=== PATIENT | male | born 1945 | race Caucasian/White ===

== ENCOUNTER 2016-02-26 05:35 | Emergency (ER) | payer OTHER, MEDICARE ==
[~2016-02-26] VITALS: Ht 182.9 cm; Wt 111.1 kg
[~2016-02-26 05:35] MED LIST: ASPIR 8181 MG PO; ATORVASTATIN CA40 MG PO; CENTRUM SILVER1 TA1 PO; LOPRESSOR 25MG25 MG PO; NITROSTAT0.4 MG SL; NORVASC 5MG TAB5 MG PO; PREDNISONE 10MG10 M1 PO
[2016-02-26 05:40] VITALS: BP 138/88
--- NOTE | 2016-02-26 05:50 | ED SKIN/ALLERGY COMPLAINT ---
History of Present Illness General Chief Complaint: Allergy Symptoms Stated Complaint: ALLERGIC REACTION Source: patient Exam Limitations: no limitations Vital Signs & Intake/Output Vital Signs & Intake/Output Vital Signs Date Time Temp Pulse Resp B/P Pulse O2 O2 Flow FiO2 Ox Delivery Rate 02/25 0549 Room Air 02/25 0540 97.2 63 18 138/88 97 Room Air Allergies Coded Allergies: lisinopril (Severe, ANAPHYLAXIS 02/26/16) Reconcile Medications Amlodipine (Norvasc 5MG Tab) 5 MG TABLET 1 TAB PO QAM BP/HEART (Reported) Aspirin (Ecotrin) 81 MG TABLET.DR 1 TAB PO QAM HEART HEALTH (Reported) Atorvastatin Calcium (Lipitor) 40 MG TABLET 1 TAB PO EOD CHOLESTEROL ( Reported) Metoprolol Tartrate (Lopressor) 25 MG TABLET 1 TAB PO BID HEART/BP (Reported) Multivitamin, Minerals, and (Centrum Silver) 1 TAB TAB 1 TAB PO QAM MULTIVITAMIN (Reported) Nitroglycerin (Nitrostat) 0.4 MG TAB.SUBL 1 TAB SL AD PRN ANGINA (Reported) Prednisone 50 MG TABLET 1 TAB PO DAILY allergic reaction Triage Note: TRIAGE: PATIENT TO ER FROM HOME REPORTING ATE DINNER LAST NIGHT W/ SHRIMP (HAS HAD SHRIMP IN PAST W/O DIFFICULTY) AND WOKE THIS AM X 2 HOURS W/ L FACE SWELLING. DENIES SOB, AIRWAY PATENT, SPEECH CLEAR. NO ACUTE RESP DISTRESS NOTED. DENIES RASH/ ITCHINESS. PATIENT REPORTS HX UNKNOWN ALLERGY, HAS SEEN [employer] IN PAST. Triage Nurses Notes Reviewed? yes Onset: Gradual Duration: hour(s): Timing: single episode today Severity: mild Location: left cheek Possible Factors: foods No Modifying Factors: none Associated Symptoms: left cheek swelling HPI: 70 yo gentleman h/o htn, increased lipids, presents with left cheeck swelling and itchiness upon awakening this morning after eating shrimp last night. He notes a prior allergic reaction, but without etiology. He notes no tongue swelling, wheezing, dyspnea, chest pain, dizziness, shortness of breath. Past History Travel History Traveled to [place] past 21 day No Medical History Any Pertinent Medical History? 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 No Review of Systems Review of Systems Constitutional: Reports: no symptoms. EENTM: Reports: no symptoms. Respiratory: Reports: no symptoms. Cardiovascular: Reports: no symptoms. GI: Reports: no symptoms. Genitourinary: Reports: no symptoms. Musculoskeletal: Reports: no symptoms. Skin: Reports: no symptoms. Neurological/Psychological: Reports: no symptoms. Hematologic/Endocrine: Reports: no symptoms. Immunologic/Allergic: Reports: no symptoms. All Other Systems: Reviewed and Negative Physical Exam Physical Exam General Appearance: well developed/nourished, mild distress Head: atraumatic Eyes: Bilateral: normal appearance. Ears, Nose, Throat: normal pharynx, normal ENT inspection, hearing grossly normal, left cheek with mild urticaria 4x4cm. no dental tenderness, gum swelling /abscess. Neck: normal inspection, supple Respiratory: normal breath sounds Cardiovascular: regular rate/rhythm Gastrointestinal: soft, non-tender Back: normal inspection Extremities: normal inspection, normal range of motion, no edema Neurologic/Psych: awake, alert, oriented x 3, normal mood/affect Lymphatic: no anterior cervical erin Progress Differential Diagnosis: allergic reaction, angioedema, urticaria Plan of Care: gave prednisone and benadryl... advised close follow up. Departure Departure Disposition: HOME OR SELF CARE Condition: Stable Clinical Impression Primary Impression: Urticaria Referrals: PATIENT HAS NO PRIMARY CARE DR (PCP/Family) Departure Forms: Customer Survey General Discharge Information Prescriptions: Current Visit Scripts Prednisone 1 TAB PO DAILY #4 TAB
[2016-02-26] MEDS ORDERED: PREDNISONE50 M1 PO (05:56)
== END 2016-02-26 06:23 ==
LOC: ERH 05:35
DX: L50.9 Urticaria, unspecified (principal)

== ENCOUNTER 2017-06-02 20:59 | Inpatient (IN) | payer OTHER, MEDICARE ==
[~2017-06-02] VITALS: Ht 182.9 cm; Wt 102.1 kg
[~2017-06-02 20:59] MED LIST changes: -ATORVASTATIN CA40 MG PO; +LIPITOR40 M1 PO; -NORVASC 5MG TAB5 MG PO; +NORVASC2.5 M1 PO; +PREDNISONE50 M1 PO
--- NOTE | 2017-06-02 21:08 | ED SYNCOPE COMPLAINT ---
History of Present Illness General Chief Complaint: Syncope and Near-Syncope Stated Complaint: BIBA DIZZY, SYNCOPE Source: patient Exam Limitations: no limitations Vital Signs & Intake/Output Vital Signs & Intake/Output Vital Signs Date Time Temp Pulse Resp B/P B/P Pulse O2 O2 Flow FiO2 Mean Ox Delivery Rate 06/02 2146 94 06/02 2114 93 Nasal 2.0L Cannula 06/02 2102 98.4 70 18 136/75 93 Nasal 2.0L Cannula Allergies Coded Allergies: lisinopril (Severe, ANAPHYLAXIS 02/26/16) Reconcile Medications Amlodipine (Norvasc 5MG Tab) 5 MG TABLET 1 TAB PO QAM BP/HEART (Reported) Aspirin (Ecotrin) 81 MG TABLET.DR 1 TAB PO QAM HEART HEALTH (Reported) Atorvastatin Calcium (Lipitor) 40 MG TABLET 1 TAB PO EOD CHOLESTEROL ( Reported) Metoprolol Tartrate (Lopressor) 25 MG TABLET 1 TAB PO BID HEART/BP (Reported) Multivitamin, Minerals, and (Centrum Silver) 1 TAB TAB 1 TAB PO QAM MULTIVITAMIN (Reported) Nitroglycerin (Nitrostat) 0.4 MG TAB.SUBL 1 TAB SL AD PRN ANGINA (Reported) Prednisone 50 MG TABLET 1 TAB PO DAILY allergic reaction Triage Nurses Notes Reviewed? yes Timing: recent history Precipitating Factors: none Context: walking Episode Description: see below Loss of Consciousness: near loss of consciousness Associated Symptoms: dizzines,shortness of breath. HPI: 71 YO gentleman h/o diabetes, cad, peripheral neuropathy presents with near syncopal event, fall, dizziness, shortness of breath and wheezing. "I was walking and was really short of breath... I got really dizzy and almost passed out.... I was so tired walking, like I couldn't even move." No fever, chills, palpitations, chest pain, headache. He is otherwise well. Past History Travel History Traveled to [place] past 21 day No Medical History Any Pertinent Medical History? 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 No Review of Systems Review of Systems Constitutional: Reports: no symptoms. EENTM: Reports: no symptoms. Respiratory: Reports: no symptoms. Cardiovascular: Reports: no symptoms. GI: Reports: no symptoms. Genitourinary: Reports: no symptoms. Musculoskeletal: Reports: no symptoms. Skin: Reports: no symptoms. Neurological/Psychological: Reports: no symptoms. All Other Systems: Reviewed and Negative Physical Exam Physical Exam General Appearance: well developed/nourished, mild distress Head: atraumatic, normal appearance Eyes: Bilateral: normal appearance, PERRL, EOMI. Ears, Nose, Throat: normal pharynx, normal ENT inspection Neck: normal inspection, supple, full range of motion Respiratory: wheezing, prolonged expiratory phase Cardiovascular: regular rate/rhythm Gastrointestinal: normal bowel sounds, soft, non-tender, no organomegaly Back: normal inspection, normal range of motion Extremities: normal inspection, normal capillary refill, normal range of motion, no edema Psychiatric: awake, alert, oriented x 3 Cranial Nerves: normal hearing, normal speech Skin: right knee with abrasion on patella Core Measures ACS in differential dx? No CVA/TIA Diagnosis: No Sepsis Present: No Sepsis Focused Exam Completed? No Progress Differential Diagnosis: copd exacerbation vs acs vs dysrhythmia vs other. Plan of Care: Orders Procedure Date/time Status Nothing by Mouth 06/03 B Active Saline Lock 06/03 2251 Active Misc Message 06/03 2251 Active ED Holding Orders 06/03 2251 Active Admit to inpatient 06/03 2251 Active Vital Signs 06/03 2251 Active Code Status 06/03 2251 Active BLOOD CULTURE 06/03 2119 Active BLOOD CULTURE 06/02 2116 Active TROPONIN LEVEL 06/03 2107 Complete LIPASE 06/03 2107 Complete HEPATIC FUNCTION PANEL 06/03 2107 Complete D-DIMER 06/03 2107 Complete CBC WITHOUT DIFFERENTIAL 06/03 2107 Complete BASIC METABOLIC PANEL 06/03 2107 Complete AMYLASE 06/03 2107 Complete EKG 06/03 2107 Active Laboratory Tests 06/02/172138: Anion Gap 11, Estimated GFR > 60, BUN/Creatinine Ratio 17.1, Glucose 126 H, Calcium 9.2, Total Bilirubin 1.0, Direct Bilirubin 0.2, AST 38, ALT 46, Alkaline Phosphatase 82, Troponin I < 0.01, Total Protein 6.8, Albumin 4.2, Amylase 62, Lipase 137, D-Dimer High Sensitivty 233, CBC w Diff NO MAN DIFF REQ, RBC 5.02, MCV 88.1, MCH 29.8, MCHC 33.8, RDW 13.4, MPV 7.9, Gran % 61.8, Lymphocytes % 25.2, Monocytes % 12.2 H, Eosinophils % 0.4, Basophils % 0.4, Absolute Granulocytes 2.3, Absolute Lymphocytes 0.9 L, Absolute Monocytes 0.5, Absolute Eosinophils 0, Absolute Basophils 0 Microbiology 06/02 2138 BLOOD: Blood Culture - RECD 06/02 2129 BLOOD: Blood Culture - RECD Diagnostic Imaging: Viewed by Me: Radiology Read, CT Scan. Discussed w/RAD: Radiology Read, CT Scan. Radiology Impression: PATIENT: ARAMIS MUNROE PRESENT AGE: 71 PATIENT ACCOUNT NO: [id number] : 45 LOCATION: [facility] ORDERING PHYSICIAN: Gabino Mccormack MD SERVICE DATE: 06/02/17 EXAM TYPE: RAD - XRY-SHOULDER COMPLETE-RIGHT EXAMINATION: SHOULDER 3 VIEWS, RIGHT CLINICAL INFORMATION: Right shoulder pain after fall. COMPARISON: None. TECHNIQUE: AP views of the right shoulder were obtained in internal and external rotation. In addition, a Y view was obtained. FINDINGS: There are no fractures or dislocations. The humeral head is seated within a well-formed glenoid. The AC joint is intact. There is age-appropriate mild degenerative change to the right AC joint. IMPRESSION: No evidence for acute injury to the right shoulder. DICTATED BY: Gunanr Abdalla MD DATE/TIME DICTATED:06/02/172207 WOOLEN TESTER:JAMEY DATE/TIME TRANSCRIBED:06/02/172207 CONFIDENTIAL, DO NOT COPY WITHOUT APPROPRIATE AUTHORIZATION. <Electronically signed in Other Vendor System> SIGNED BY: Gunnar Abdalla MD 06/02/172211, PATIENT: ARAMIS MUNROE PRESENT AGE: 71 PATIENT ACCOUNT NO: [id number] : 45 LOCATION: [facility] ORDERING PHYSICIAN: Gabino Mccormack MD SERVICE DATE: 06/02/17 EXAM TYPE: RAD - XRY-KNEE COMPLETE RIGHT EXAMINATION: XR KNEE, RIGHT CLINICAL INFORMATION: Fall. Abrasions. COMPARISON: None TECHNIQUE: Four views of the right knee. FINDINGS: There is no fracture. No dislocation. No joint effusion. There is no radiopaque foreign body. No air in the soft tissue. There are varices in the soft tissues of the upper calf. There are vascular calcification of femoral artery and the arteries of the upper calf. IMPRESSION: No acute abnormality. DICTATED BY: Stas Crespo MD DATE/TIME DICTATED:06/02/172208 WOOLEN TESTER:JAMEY DATE/TIME TRANSCRIBED:06/02/172208 CONFIDENTIAL, DO NOT COPY WITHOUT APPROPRIATE AUTHORIZATION. <Electronically signed in Other Vendor System> SIGNED BY: Stas Crespo MD 06/02/172213, PATIENT: ARAMIS MUNROE PRESENT AGE: 71 PATIENT ACCOUNT NO: [id number] : 45 LOCATION: [facility] ORDERING PHYSICIAN: Gabino Mccormack MD SERVICE DATE: 06/02/17 EXAM TYPE: CAT - CT CERV SPINE WO IV CONTRAST; CT HEAD WO IV CONTRAST EXAMINATION: CT HEAD WITHOUT CONTRAST CT CERVICAL SPINE WITHOUT CONTRAST CLINICAL INFORMATION: 71-year-old man with syncope, fall, and injury. COMPARISON : None. TECHNIQUE: Imaging was performed from the skull base to vertex without intravenous administration of contrast. In addition, helical noncontrast CT imaging was acquired through the cervical spine and source images were reviewed along with axial reconstructions and sagittal and coronal MPRs. DLP: 964 mGy-cm FINDINGS: HEAD: No intracranial mass, hemorrhage, or midline shift is visualized. The ventricles and sulci are age-appropriate. No extra-axial collections are identified. Moderate mucosal thickening is noted in the ethmoid air cells and a mucus retention cyst is is abnormal in the sphenoid sinus. CERVICAL SPINE: There is no evidence of acute cervical spine fracture. Vertebral bodies remain normal in height. There is reversal of the normal cervical lordosis. Degenerative endplate remodeling with marginal osteophyte formation and moderate loss of normal disc space is noted at C4-C5, C5-C6, and C6-C7. No pre- or paravertebral soft tissue abnormality is identified. Limited assessment of the lung apices is notable for moderate paraseptal emphysema. IMPRESSION: 1. No acute intracranial pathology. 2. No CT evidence of acute cervical spine fracture or traumatic subluxation. DICTATED BY: Carin Marinelli MD DATE/TIME DICTATED:06/02/172153 WOOLEN TESTER:JAMEY DATE/TIME TRANSCRIBED:2153 CONFIDENTIAL, DO NOT COPY WITHOUT APPROPRIATE AUTHORIZATION. < Electronically signed in Other Vendor System> SIGNED BY: Carin Marinelli MD 2200, PATIENT: ARAMIS MUNROE PRESENT AGE : 71 PATIENT ACCOUNT NO: [id number] : 45 LOCATION: [facility] ORDERING PHYSICIAN: Gabino Mccormack MD SERVICE DATE: 06/02/17 EXAM TYPE: RAD - XRY-PORTABLE CHEST XRAY EXAMINATION: CHEST 1 VIEW CLINICAL INFORMATION: Chest pain. COMPARISON: None. TECHNIQUE: An AP view of the chest is provided. FINDINGS: The cardiac silhouette is not enlarged. The mediastinal and hilar contours are unremarkable. There are neither pleural effusions nor pneumothoraces. There are no consolidations. The osseous structures are unremarkable. IMPRESSION: No evidence for acute disease. DICTATED BY: Gunnar Abdalla MD DATE/TIME DICTATED:06/02/172207 WOOLEN TESTER:JAMEY DATE/TIME TRANSCRIBED:06/02/172207 CONFIDENTIAL, DO NOT COPY WITHOUT APPROPRIATE AUTHORIZATION. <Electronically signed in Other Vendor System> SIGNED BY: Gunnar Abdalla MD 06/02/172211 CXR Impression: no acute abnormality, no infiltrates, normal size heart, normal mediastinum Initial ED EKG: borderline left axis, no acute changes Departure Departure Disposition: STILL A PATIENT Condition: Stable Clinical Impression Primary Impression: COPD exacerbation Secondary Impressions: Dizziness, Near syncope Referrals: Bartolo ACE,Walker Weber (PCP/Family) Departure Forms: Customer Survey General Discharge Information Admission Note Spoke With: Bobbi Rojas MD Documentation of Exam: Documentation of any treatments & extenuating circumstances including Concerns Regarding Discharge (functional status, medication knowledge or non-compliance, living conditions, etc.) that warrant an admission rather than observation: pt hypoxic to 88% on room air, with wheezing on exam, feels better after neb. pt also with near syncopal event in context of CAD, c/w copd exacerbation w/ syncope merits serial trops/monitoring/ekg, cards eval in am, iv steroids/abx, 02 support, nebs. Critical Care Note Critical Care Note Critical Care Time: 30-74 min
[2017-06-02 21:48] LABS: ABSOLUTE BASOPHIL COUNT 0 /CUMM (0.0-0.2); ABSOLUTE EOSINOPHIL COUNT 0 /CUMM (0.0-0.7); ABSOLUTE GRANULOCYTE CT 2.3 /CUMM (1.4-6.5); ABSOLUTE LYMPH COUNT 0.9 /CUMM (1.2-3.4); ABSOLUTE MONOCYTE COUNT 0.5 /CUMM (0.10-0.60); BASOPHIL % 0.4 % (0.0-2.0); EOSINOPHIL % 0.4 % (0-5); GRANULOCYTE % 61.8 % (42.2-75.2); HEMATOCRIT 44.2 % (42-52); MEAN CORPUSCULAR HGB 29.8 PG (27.0-31.0); MEAN CORPUSCULAR HGB CONC 33.8 G/DL (33.0-37.0); MEAN CORPUSCULAR VOLUME 88.1 FL (80.0-94.0); MEAN PLATELET VOLUME 7.9 FL (7.4-10.4); PLATELET COUNT 178 /CUMM (130-400); RBC DISTRIBUTION WIDTH 13.4 % (11.5-14.5); RED BLOOD CELL CT 5.02 /CUMM (4.70-6.10); WHITE BLOOD CELL COUNT 3.7 /CUMM (4.8-10.8)
--- NOTE | 2017-06-02 22:01 | CT SCAN REPORT ---
EXAMINATION: CT HEAD WITHOUT CONTRAST CT CERVICAL SPINE WITHOUT CONTRAST CLINICAL INFORMATION: 71-year-old man with syncope, fall, and injury. COMPARISON: None. TECHNIQUE: Imaging was performed from the skull base to vertex without intravenous administration of contrast. In addition, helical noncontrast CT imaging was acquired through the cervical spine and source images were reviewed along with axial reconstructions and sagittal and coronal MPRs. DLP: 964 mGy-cm FINDINGS: HEAD: No intracranial mass, hemorrhage, or midline shift is visualized. The ventricles and sulci are age-appropriate. No extra-axial collections are identified. Moderate mucosal thickening is noted in the ethmoid air cells and a mucus retention cyst is is abnormal in the sphenoid sinus. CERVICAL SPINE: There is no evidence of acute cervical spine fracture. Vertebral bodies remain normal in height. There is reversal of the normal cervical lordosis. Degenerative endplate remodeling with marginal osteophyte formation and moderate loss of normal disc space is noted at C4-C5, C5-C6, and C6-C7. No pre- or paravertebral soft tissue abnormality is identified. Limited assessment of the lung apices is notable for moderate paraseptal emphysema. IMPRESSION: 1. No acute intracranial pathology. 2. No CT evidence of acute cervical spine fracture or traumatic subluxation.
--- NOTE | 2017-06-02 22:12 | RADIOLOGY REPORT ---
EXAMINATION: SHOULDER 3 VIEWS, RIGHT CLINICAL INFORMATION: Right shoulder pain after fall. COMPARISON: None. TECHNIQUE: AP views of the right shoulder were obtained in internal and external rotation. In addition, a Y view was obtained. FINDINGS: There are no fractures or dislocations. The humeral head is seated within a well-formed glenoid. The AC joint is intact. There is age-appropriate mild degenerative change to the right AC joint. IMPRESSION: No evidence for acute injury to the right shoulder.
--- NOTE | 2017-06-02 22:12 | RADIOLOGY REPORT ---
EXAMINATION: CHEST 1 VIEW CLINICAL INFORMATION: Chest pain. COMPARISON: None. TECHNIQUE: An AP view of the chest is provided. FINDINGS: The cardiac silhouette is not enlarged. The mediastinal and hilar contours are unremarkable. There are neither pleural effusions nor pneumothoraces. There are no consolidations. The osseous structures are unremarkable. IMPRESSION: No evidence for acute disease.
--- NOTE | 2017-06-02 22:14 | RADIOLOGY REPORT ---
EXAMINATION: XR KNEE, RIGHT CLINICAL INFORMATION: Fall. Abrasions. COMPARISON: None TECHNIQUE: Four views of the right knee. FINDINGS: There is no fracture. No dislocation. No joint effusion. There is no radiopaque foreign body. No air in the soft tissue. There are varices in the soft tissues of the upper calf. There are vascular calcification of femoral artery and the arteries of the upper calf. IMPRESSION: No acute abnormality.
--- NOTE | 2017-06-02 23:39 | History & Physical ---
Arnel ACE,[facility] 06/02/17 3338: General Information and HPI MD Statement: I have seen and personally examined ARAMIS MUNROE and documented this H& P. The patient is a 71 year old M who presented with a patient stated chief complaint of [dizziness and near syncope]. Source of Information: patient Exam Limitations: no limitations History of Present Illness: 71 yo M with PMH of hypertension, diabetes presented to the ED after a near syncopal episode earlier today. 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 Earlier today he was at work and felt fatigued so decided to go home. He was walking to his car when he starting feeling dizzy and lightheaded and fell on his right side. He did not lose consciousness or hit his head. Denies any chest pain or palpitations preceeding the fall. The patient states that he has been feeling off balance and wobbly at his feet for the past 4 weeks . He had a fall previously at his sister's place around 4 weeks ago. No LOC or head trauma at that time either. His other complain is that he feels that he is having bronchitis; sore throat, cough with sputum production since the weekend. He took some OTC medication which made him feel better. Did not receive the flu vaccination this year. Smokes 2 PPD for past 50 years but quit yesterday. Follows Dr Benjamin Valle in [place]. Last saw him 5-6 weeks ago and was told everything is normal. Allergies/Medications Allergies: Coded Allergies: lisinopril (Severe, ANAPHYLAXIS 02/26/16) Home Med list Amlodipine (Norvasc) 2.5 MG TABLET 1 TAB PO DAILY HTN (Reported) Aspirin (Ecotrin) 81 MG TABLET.DR 1 TAB PO QAM HEART HEALTH (Reported) Atorvastatin Calcium (Lipitor) 40 MG TABLET 1 TAB PO DAILY HLD (Reported) Metoprolol Tartrate (Lopressor) 25 MG TABLET 1 TAB PO BID HEART/BP (Reported) Multivitamin, Minerals, and (Centrum Silver) 1 TAB TAB 1 TAB PO QAM MULTIVITAMIN (Reported) Nitroglycerin (Nitrostat) 0.4 MG TAB.SUBL 1 TAB SL AD PRN ANGINA (Reported) Prednisone 50 MG TABLET 1 TAB PO DAILY allergic reaction Past History Travel History Traveled to [place] past 21 day No Medical History Neurological: NONE EENT: NONE Cardiovascular: hypertension, ND'S X2 Respiratory: NONE Gastrointestinal: NONE Hepatic: NONE Renal: NONE Musculoskeletal: NONE Psychiatric: NONE Endocrine: NONE Blood Disorders: NONE Cancer(s): NONE COSTUME TECHNICIAN/Reproductive: NONE Surgical History Surgical History: non-contributory Past Family/Social History Psychosocial History ETOH Use: occasional use Illicit Drug Use: denies illicit drug use Review of Systems Review of Systems Constitutional: Reports: weakness. Denies: chills, fever. EENTM: Reports: no symptoms. Cardiovascular: Denies: chest pain, palpitations. Respiratory: Reports: cough, short of breath, sputum production. Denies: wheezing. GI: Reports: no symptoms. Genitourinary: Reports: no symptoms. Musculoskeletal: Denies: joint pain, muscle pain. Skin: Reports: no symptoms. Neurological/Psychological: Reports: no symptoms. Hematologic/Endocrine: Reports: no symptoms. Exam & Diagnostic Data Last 24 Hrs of Vital Signs/I&O Vital Signs Date Time Temp Pulse Resp B/P B/P Pulse O2 O2 Flow FiO2 Mean Ox Delivery Rate 06/02 2334 97.7 75 22 140/79 91 Room Air 06/02 2147 94 06/02 2115 93 Nasal 2.0L Cannula 06/02 2103 98.4 70 18 136/75 93 Nasal 2.0L Cannula Intake & Output 06/03 0800 06/03 0000 06/02 1600 Intake Total Output Total Balance Patient 225 lb Weight Weight Reported by Patient Measurement Method Physical Exam General Appearance Alert, Oriented X3, Cooperative, No Acute Distress Skin No Rashes, No Breakdown Skin Temp/Moisture Exam: Warm/Dry Sepsis Skin Exam (color): Normal for Ethnicity HEENT Atraumatic Cardiovascular Normal S1, Normal S2, No Murmurs Lungs Clear to Auscultation, Normal Air Movement Abdomen Soft, No Tenderness Neurological Normal Speech Extremities No Edema Assessment/Plan Assessment: 71 yo M with PMH of hypertension, diabetes presented to the ED after a near syncopal episode earlier today. Assessment: 1. Influenza B 2. Near Syncope 3. Acute Bronchitis Plan: * Admit to telemetry floor. Would monitor overnight for any arrhythmia. * Cardiology consult in am * Obtain old records from patient's visor installer Dr Benjamin Valle in [facility] * R/o ACS with 3 sets of troponins and EKG * Start Tamiflu 75mg BID * Start quick Prednisone taper 60mg from tomorrow. He already received IV SoluMedrol 125mg in ED * TRC/nebs as needed * Oxygen supplementation if needed. He did briefly require oxygen in the ED * Hydration with NS @75ml/hr - 1 bag * Orthostatic vitals * Hold Metformin. Insulin SS with Accucheks * Diet: Diabetic * DVT Prophylaxis: SC Lovenox * Code: Full Code As Ranked By This Provider Problem List: 1. Near syncope Core Measures/Misc (11/03) Acute Coronary Syndrome ACS Diagnosis: No Congestive Heart Failure Congestive Heart Failure Diagnosis No Cerebrovascular Accident CVA/TIA Diagnosis: No VTE (View Protocol) VTE Risk Factors Age>40 No Mechanical VTE Prophylaxis d/t N/A MechProphylax Ordered No VTE Pharm Prophylaxis d/t NA PharmProphylax ordered Sepsis (View protocol) Sepsis Present: No Shaquille Sullivan 06/03/17 0244: Resident Review Statement Resident Statement: examined this patient, discussed with transportation logistics internship, agreed with transportation logistics internship, discussed with family, reviewed EMR data (avail), discussed with nursing , discussed with case mgmt, reviewed images Other Findings: is a 71 yo M , with PMHx. of CAD s/p stents (7 stents), HTN, T2DM, current every day smoker , presented to ed with a c/o near syncopal episode, productive cough and generalized malaise. He has flu symptoms in the weekend managed with OTC meds with slight improvement, today he felt lightheaded, almost passed out. He also noticed productive cough, SOB, attributed his Sx. to possible bronchitis, no recent antibiotic use. Patient desat at ED to 88% on RA which improved with 2L NC, On exam: awake, alert, oriented, not in acute distress, heart: S1, S2, No murmur. Chest: clear with no added sound. Neurological exam: No nystigms, no motor or sensory deficit. CXR with no acute finding, EKG: NSR with LAD CT-head with acute abnormalities At ED: He received solu-medrol 125mg, one dose of ceftriaxone/ azithromycin. Admitted to telemetry floor to r/o arrythmia. Found to have positive Flu, we start Tamiflu, will start prednisone at am (Short taper), cardiology consult, will r/o acs with troponin/ekg, TRC/Nebs, Gentle hydration, check orthostat, PT evaluation. DVT ppx; SC Lovenox, full code. Bob ACE, 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 Benjamin Valle at [place]), is here for evaluation of near syncopal episode. Patient has been having URI/ bronchitis symptoms for the past 2 days, started with a sore throat, congestion and non-productive cough for which he was taking OTC meds with some relief. Today, he went to work as usual, but felt fatigued and was barely able to walk, so he decided to drive back home. However, he could not even make it to his car as he felt dizzy, lightheaded and fell to his right side hitting his shoulder and knee to the ground. He denies LOC or head injury. He reports feeling off-balance and has fallen previousely 4 weeks ago. He is independent with ADL's and IADL's. Vitals stable except for sats 88% RA ---> 93% on 2L. Exam: AAO, in no acute distress, posterior pharyngeal erythema noted, Chest reduced air entry with scattered wheeze. Labs: WBC 3.7, monocytes 12.8, Na 134, trop neg. Flu swab: positive for influenza B. CXR: neg. CT head/ cervical spine/ shoulder and knee Xray reviewed and negative. EKG: sinus rhythm, LAD. Assessment and plan: 1. Near syncope 2. Hypoxia 3. Influenza B 4. Acute bronchitis 5. Mild COPD exacerbation in this chronic smoker 6. Recurrent fall, gait instability, imbalance 7. CAD s/p 7 stents 8. Essential HTN and T2DM - Admit to Telemetry - Check orthostats - Serial EKG and troponin - Obtain records from [facility] office at [place] ?recent echo - Cardio consult in AM - TRC nebs - Sputum culture if possible - Initiate tamiflu BID - Rapid prednisone taper - Smoking cessation counseling - O2 supplementation as needed - Patient received ceftriaxone and azithro in ER, we will hold off on abx - Gentle IV hydration - Resume aspirin, metoprolol, statin, amlodipine and B12. Hold metformin and initiate novolog SS - PT eval (unclear cause of recurrent fall, imbalance) - Check vitamin D, B12, TSH, free T4 DVT ppx Lovenox. Full code.
--- NOTE | 2017-06-03 06:12 | Admission Certification ---
Admission Certification Certification Statement - As attending physician, I certify that at the time of - admission, based on clinical presentation, severity of - symptoms, need for further diagnostic testing and - therapeutic interventions, and risk of adverse outcomes - without in-hospital treatment, in my clinical assessment, - this patient requires an acute hospital stay for a minimum - of two nights or longer. I have also considered psychsocial - factors such as support system, advanced age, financial - issues, cognitive issues, and failed out-patient treatments, - past re-admission history, safety of patient, and lack of - compliance as applicable. Specific rationale supporting this admission is: Near syncope, Influenza B, bronchitis, hypoxia.
[2017-06-03 06:25] LABS: ABSOLUTE BASOPHIL COUNT 0 /CUMM (0.0-0.2); ABSOLUTE EOSINOPHIL COUNT 0 /CUMM (0.0-0.7); ABSOLUTE GRANULOCYTE CT 1.6 /CUMM (1.4-6.5); ABSOLUTE LYMPH COUNT 0.6 /CUMM (1.2-3.4); ABSOLUTE MONOCYTE COUNT 0.1 /CUMM (0.10-0.60); BASOPHIL % 0.5 % (0.0-2.0); EOSINOPHIL % 0.2 % (0-5); GRANULOCYTE % 68.8 % (42.2-75.2); MEAN CORPUSCULAR HGB 30.2 PG (27.0-31.0); MEAN PLATELET VOLUME 8.3 FL (7.4-10.4); PLATELET COUNT 173 /CUMM (130-400); RBC DISTRIBUTION WIDTH 13.1 % (11.5-14.5); RED BLOOD CELL CT 4.95 /CUMM (4.70-6.10); WHITE BLOOD CELL COUNT 2.3 /CUMM (4.8-10.8)
--- NOTE | 2017-06-03 07:15 | PN- Housestaff ---
Nafisa ACE,Richard 06/03/17 0715: Subjective Follow-up For: near syncope with fall influenza leukopenia Tele-Events Since Last Visit: NSR HR in 60s Subjective: Patient seen and examined at bedside. He is resting comfortably. He had no acute events overnight. He reports that he is feeling better overall, continues to complain of a nonproductive cough. He is also complaining of right shoulder pain which is 0 out of 10 at rest, however 8 out of 10 with motion. He denies any repeat episodes of dizziness, he is unable to ambulate and feels that his gait is steady, but does report feeling weak. He denies any chest pain, shortness of breath, nausea, vomiting, fever, chills. Review of Systems Constitutional: Denies: chills, fever. Cardiovascular: Reports: no symptoms. Respiratory: Reports: cough. Denies: short of breath, wheezing. Gastrointestinal: Reports: no symptoms. Genitourinary: Reports: no symptoms. Musculoskeletal: Reports: see HPI, joint pain (R shoulder). Objective Last 24 Hrs of Vital Signs/I&O Vital Signs Date Time Temp Pulse Resp B/P B/P Pulse O2 O2 Flow FiO2 Mean Ox Delivery Rate 06/03 0553 96.4 56 18 125/72 97 Room Air 06/03 0323 80 20 142/76 92 Room Air 06/02 2334 97.7 75 22 140/79 91 Room Air 06/02 2147 94 06/02 2115 93 Nasal 2.0L Cannula 06/02 2103 98.4 70 18 136/75 93 Nasal 2.0L Cannula Intake & Output 06/03 0800 06/03 0000 06/02 1600 Intake Total Output Total Balance Patient 225 lb Weight Weight Reported by Patient Measurement Method Physical Exam General Appearance: Alert, Oriented X3, Cooperative Skin Temp/Moisture Exam: Warm/Dry Sepsis Skin Exam (color): Normal for Ethnicity HEENT: Atraumatic, PERRLA, EOMI Cardiovascular: Regular Rate, Normal S1, Normal S2 Lungs: Clear to Auscultation, Normal Air Movement Abdomen: Normal Bowel Sounds, Soft, No Tenderness Neurological: Normal Speech, Normal Tone, Sensation Intact Extremities: abrasion on the R knee, with mild tenderness to palpation, R shoulder with limited active range of mostion due to pain, passive range of motion induces pain at 90 degress abduction and any shoulder flexion or extension Current Medications: Current Medications Sig/Dharmesh Start time Last Medication Dose Route Stop Time Status Admin Acetaminophen 650 MG Q6P PRN 06/02 2345 AC PO Albuterol Sulfate 3 ML ONCE ONE 06/02 2114 DC 06/02 INH 06/02 Aspirin Buffered 81 MG QAM 06/03 0900 AC PO Atorvastatin Calcium 40 MG 1700 06/03 1700 AC PO Azithromycin 500 MG ONCE ONE 06/02 2129 DC 06/02 Dextrose/Water 250 ML IV 06/02 2228 221 Ceftriaxone Sodium 0 .STK-MED ONE 06/02 2146 DC .ROUTE Ceftriaxone Sodium 1,000 MG ONCE ONE 06/02 2129 DC 06/02 IV 06/02 2130 221 Enoxaparin Sodium 40 MG DAILY 06/03 0900 AC SC Insulin Aspart 0 TIDAC 06/03 0800 AC SC Ipratropium [place] 2.5 ML ONCE ONE 06/02 2114 DC 06/02 INH 06/02 Methylprednisolone 0 .STK-MED ONE 06/02 2146 DC .ROUTE Methylprednisolone 125 MG ONCE ONE 06/02 2129 DC 06/02 IV 06/02 2130 221 Metoprolol Tartrate 25 MG BID 06/03 0900 AC PO Oseltamivir Phosphate 75 MG BID 06/03 0200 AC 06/03 PO 06/07 0159 0324 Sodium Chloride 1,000 ML Q13H 06/03 0300 AC 06/03 IV 06/03 1559 0324 Last 24 Hrs of Lab/Fercho Results Last 24 Hrs of Labs/Mics: Laboratory Tests 06/03/17 0610: Anion Gap 10, Estimated GFR > 60, BUN/Creatinine Ratio 16.7, CBC w Diff NO MAN DIFF REQ, RBC 4.95, MCV 89.0, MCH 30.2, MCHC 34.0, RDW 13.1, MPV 8.3, Gran % 68.8, Lymphocytes % 25.3, Monocytes % 5.2, Eosinophils % 0.2, Basophils % 0.5, Absolute Granulocytes 1.6, Absolute Lymphocytes 0.6 L, Absolute Monocytes 0.1, Absolute Eosinophils 0, Absolute Basophils 0 06/03/17 0320: Troponin I < 0.01 06/02/172138: Anion Gap 11, Estimated GFR > 60, BUN/Creatinine Ratio 17.1, Glucose 126 H, Calcium 9.2, Total Bilirubin 1.0, Direct Bilirubin 0.2, AST 38, ALT 46, Alkaline Phosphatase 82, Troponin I < 0.01, Total Protein 6.8, Albumin 4.2, Amylase 62, Lipase 137, D-Dimer High Sensitivty 233, CBC w Diff NO MAN DIFF REQ, RBC 5.02, MCV 88.1, MCH 29.8, MCHC 33.8, RDW 13.4, MPV 7.9, Gran % 61.8, Lymphocytes % 25.2, Monocytes % 12.2 H, Eosinophils % 0.4, Basophils % 0.4, Absolute Granulocytes 2.3, Absolute Lymphocytes 0.9 L, Absolute Monocytes 0.5, Absolute Eosinophils 0, Absolute Basophils 0 Microbiology 06/03 0006 NASOPHARYN: Influenza Virus A & B Rapid Smear - COMP INFLUENZA TYPE B 06/02 2350 LOWER RESP: Respiratory Culture - COLB 06/02 2350 LOWER RESP: Gram Stain - COLB 06/02 2138 BLOOD: Blood Culture - RECD 06/02 2129 BLOOD: Blood Culture - RECD Assessment/Plan Assessment: Patient is a 71-year-old male with a PMH significant for hypertension, diabetes type 2, distant history of [place] 2 with stents placed, who is brought in by ambulance after suffering a fall secondary to near syncopal event. Patient reported dizziness, sensation of spinning before the fall, he did not have a head strike and also denied any associated chest pain, shortness breath, nausea, diaphoresis, tonic-clonic motions, loss of bowel or bladder function. #Near-syncope Patient had an episode of dizziness with fall, no head strike or loss of consciousness, no associated symptoms concerning of neurocardiogenic syncope. Patient has a cardiac history significant for 2 MIs in the distant past. He cardiac risk factors including smoking, HTN, DM -Patient has had no recurrent episodes of dizziness since presentation -Orthostatic negative -No arrhythmias noted on telemetry -We'll obtain records from patient's catholic priest #Chronic medical problems -Continue home medications -Novolog sliding scale with Accu-Cheks Diet: Diabetic with sodium restriction DVT prophylaxis: Alps, subcutaneous heparin CODE STATUS: Full code Problem List: 1. Near syncope 2. Dizziness Pain Ratin Pain Location: no pain at rest, 8/10 with motion of the R shoulder Pain Goal: Remain pain free Pain Plan: pain pathway Tomorrow's Labs & Rationales: leticia Reagan MD,Eliza 06/03/17 1458: Attending MD Review Statement Attending Statement Attending MD Statement: examined this patient, discuss w/resident/PA/AUTOCAD OPERATOR, agreed w/resident/PA/AUTOCAD OPERATOR, reviewed EMR data (avail), discussed with nursing, reviewed images Attending Assessment/Plan: 71-year-old male with past medical history of hypertension, diabetes, known coronary artery disease with previous stents, active tobacco use who is here with acute influenza. In addition he had a near syncopal event and the question of recurrent falls over the past 4 weeks. He was clearly acutely infected and dehydrated and my gut feeling is his near syncopal event is related to his influenza infection. He is getting Tamiflu and there doesn't appear to be any superimposed bacterial pneumonia. However given his risk factors and known CAD we will have cardiology see him, get an echocardiogram, get records from his previous catholic priest to risk stratify him.
[2017-06-03 09:00] VITALS: BP 144/72
[2017-06-03 20:20] VITALS: BP 152/82
[2017-06-04 05:58] VITALS: BP 150/68
--- NOTE | 2017-06-04 07:13 | PN- Housestaff ---
Nafisa ACE,Richard 06/04/17 0713: Subjective Follow-up For: Vertigo influenza Tele-Events Since Last Visit: SR, HR 50s-80s Subjective: Patient seen and examined at bedside. He is resting comfortably. Acute events overnight. Report episodes of dizziness even while lying down with certain head motions. He continues to have a nonproductive cough but denies any chest pain, shortness of breath, nausea, vomiting, fever, chills. He also has pain that significantly limits his mobility. Review of Systems Constitutional: Denies: chills, fever. EENTM: Reports: no symptoms. Cardiovascular: Reports: no symptoms. Respiratory: Reports: cough. Denies: short of breath, wheezing. Gastrointestinal: Reports: no symptoms. Genitourinary: Reports: no symptoms. Musculoskeletal: Reports: joint pain. Objective Last 24 Hrs of Vital Signs/I&O Vital Signs Date Time Temp Pulse Resp B/P B/P Pulse O2 O2 Flow FiO2 Mean Ox Delivery Rate 06/04 0558 98.5 54 20 150/68 96 Nasal 2.0L Cannula 06/03 2116 Nasal 2.0L Cannula 06/03 2116 Nasal 1.5L Cannula 06/03 2040 62 156/84 06/03 2020 97.8 62 20 152/82 94 Nasal 2.0L Cannula 06/03 1742 98.1 68 18 147/71 96 Nasal 2.0L Cannula 06/03 1436 98.0 65 18 127/70 94 Nasal 2.0L Cannula 06/03 1129 97.0 60 20 140/75 96 Nasal 2.0L Cannula 06/03 0900 92 Nasal 2.0L Cannula 06/03 0900 92 Nasal 2.0L Cannula 06/03 0900 97.0 64 18 144/72 92 Nasal 2.0L Cannula 06/03 0845 96.4 64 18 144/72 06/03 0753 64 144/72 06/03 0751 64 18 144/72 92 Nasal 2.0L Cannula Intake & Output 06/04 0800 06/04 0000 06/03 1600 Intake Total 300 480 960 Output Total 1000 Balance 300 480 -40 Intake, IV 600 Intake, Oral 300 480 360 Output, Urine 1000 Patient 225 lb Weight Physical Exam General Appearance: Alert, Oriented X3, Cooperative, No Acute Distress Skin Temp/Moisture Exam: Warm/Dry Cardiovascular: Regular Rate, Normal S1, Normal S2 Lungs: diminished breath sounds, no wheezing Abdomen: Normal Bowel Sounds, Soft, No Tenderness Neurological: Normal Speech, Normal Tone, Sensation Intact, Cranial Nerves 3-12 NL Extremities: abrasion on the L knee Current Medications: Current Medications Sig/Dharmesh Start time Last Medication Dose Route Stop Time Status Admin Acetaminophen 650 MG Q6P PRN 06/02 2345 AC PO Albuterol Sulfate 3 ML BID 06/04 0900 AC 06/03 INH 2110 Aspirin Buffered 81 MG QAM 06/03 0900 AC 06/03 PO 0845 Atorvastatin Calcium 40 MG 1700 06/03 1700 AC 06/03 PO 1620 Enoxaparin Sodium 40 MG DAILY 06/03 0900 AC 06/03 SC 0845 Insulin Aspart 0 TIDAC 06/03 0800 AC 06/03 SC 1811 Metoprolol Tartrate 25 MG BID 06/03 0900 AC 06/03 PO 2040 Oseltamivir Phosphate 75 MG Q12H 06/03 1600 AC 06/04 PO 06/07 1559 0458 Oseltamivir Phosphate 75 MG BID 06/03 0200 DC 06/03 PO 06/07 0159 0324 Prednisone 60 MG 1000 06/03 1000 DC 06/03 PO 06/04 0959 0927 Prednisone 0 .STK-MED ONE 06/03 0927 DC PO Prednisone 60 MG DAILY 06/03 0908 DC PO 06/04 2300 Sodium Chloride 1,000 ML Q13H 06/03 0300 DC 06/03 IV 06/03 1559 0324 Last 24 Hrs of Lab/Fercho Results Last 24 Hrs of Labs/Mics: Laboratory Tests 06/04/17 0630: CBC w Diff Pending, WBC Pending, RBC Pending, Hgb Pending, Hct Pending, MCV Pending, MCH Pending, MCHC Pending, RDW Pending, Plt Count Pending, MPV Pending Assessment/Plan Assessment: Patient is a 71-year-old male with a PMH significant for hypertension, diabetes type 2, distant history of [place] 2 with stents placed, who is brought in by ambulance after suffering a fall secondary to near syncopal event. Patient reported dizziness, sensation of spinning before the fall, he did not have a head strike and also denied any associated chest pain, shortness breath, nausea, diaphoresis, tonic-clonic motions, loss of bowel or bladder function. #Vertigo Patient is now reporting infrequent episodes of dizziness that resolved spontaneously after several seconds associated with motion of the head. vertigo could be due to BPPV, less likely labyrinthitis given the relapsing and remitting nature. - negative for orthostatic hypotension - No arrhythmias noted on telemetry -records from outpatient cardiology reviewed. -echocardiogram was done, spoke with Dr. Blevins who will read it and inform housestaff of any concerning findings -patient is cleared to be DCed home with a rolling walker, outpatient follow-up with his PCP who will arrange the necessary PT treatments #influenza type B -continue tamiflu for 5 day course -flu precautions #Chronic medical problems -Continue home medications -Novolog sliding scale with Accu-Cheks Diet: Diabetic with sodium restriction DVT prophylaxis: Alps, subcutaneous heparin CODE STATUS: Full code Problem List: 1. Near syncope 2. Dizziness 3. Influenza B Pain Ratin Pain Location: L shoulder and knee, only with movement Pain Goal: Pain 4 or less Pain Plan: pain pathway Tomorrow's Labs & Rationales: none Luís Colon MD 06/04/17 1108: Attending MD Review Statement Attending Statement Attending MD Statement: examined this patient, discuss w/resident/PA/WAREHOUSE SHIPPING SUPERVISOR, agreed w/resident/PA/WAREHOUSE SHIPPING SUPERVISOR, reviewed EMR data (avail) Attending Assessment/Plan: 71M PMH CAD s/p stents (7 stents), HTN, T2DM admitted for near syncopal episode and fall. Patient reports positional vertigo, during which he becomes very dizzy and feels as if he will fall. He also has a history of diabetic polyneuropathy and his sensation and balance is compromised even at baseline. Today he feels well. He still reports positional vertigo. Manjula-Hallpike positive on the right. Park maneuver performed by physical therapist. No telemetry events. Exam benign, labs reviewed. He reports right shoulder and leg pain from where he fell. X-rays negative. He is influenza B positive. 1. Benign paroxysmal positional vertigo 2. Fall 3. Near syncope 4. Gait instability 5. Influenza B Plan - Continue on telemetry for now - Continue to work with physical therapy - Do not start Meclizine or Valium, as it interferes with Park maneuvers - Continue home medications - Walker when ambulating - DVT PPx - Anticipated discharge tomorrow with outpatient vestibular rehabilitation
[2017-06-04 08:21] LABS: ABSOLUTE BASOPHIL COUNT 0 /CUMM (0.0-0.2); ABSOLUTE EOSINOPHIL COUNT 0 /CUMM (0.0-0.7); ABSOLUTE GRANULOCYTE CT 3.4 /CUMM (1.4-6.5); ABSOLUTE LYMPH COUNT 1.7 /CUMM (1.2-3.4); ABSOLUTE MONOCYTE COUNT 0.4 /CUMM (0.10-0.60); MEAN PLATELET VOLUME 8.5 FL (7.4-10.4); RED BLOOD CELL CT 4.98 /CUMM (4.70-6.10)
[2017-06-04 08:32] LABS: BASOPHIL % 0.4 % (0.0-2.0); EOSINOPHIL % 0 % (0-5); GRANULOCYTE % 62.2 % (42.2-75.2); HEMATOCRIT 44.7 % (42-52); MEAN CORPUSCULAR HGB CONC 33.3 G/DL (33.0-37.0); MEAN CORPUSCULAR VOLUME 89.9 FL (80.0-94.0); PLATELET COUNT 163 /CUMM (130-400); RBC DISTRIBUTION WIDTH 13.3 % (11.5-14.5)
[2017-06-04 08:42] VITALS: BP 142/72
[2017-06-04 08:43] LABS: WHITE BLOOD CELL COUNT 5.5 /CUMM (4.8-10.8)
[2017-06-04] MEDS ORDERED: TAMIFLU75 M1 PO ×2 (13:29→14:04)
--- NOTE | 2017-06-04 14:01 | Patient Discharge Instructions ---
Discharge Instructions General Discharge Information You were seen/treated for: Influenza Vertigo Special Instructions: Please follow-up with your primary care physician within one week of discharge. This is important to establish physical therapy for your vertigo. Do note drive until cleared by your primary care physician or physical therapy. 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 Call your doctor or return to the ER diffusion experience severe dizziness, chest pain, shortness of breath, fall, loss of consciousness. Activity Other activity limits: Use rolling walker until cleared by your primary care phyisician or physical therapy. Acute Coronary Syndrome Inclusion Criteria At DC or during hospital stay patient has or had the following: ACS DIAGNOSIS No Discharge Core Measures Meds if any: Prescribed or Continued at Discharge Meds if any: NOT Prescribed or Continued at Discharge Congestive Heart Failure Inclusion Criteria At DC or during hospital stay patient has or had the following: CHF DIAGNOSIS No Discharge Core Measures Meds if any: Prescribed or Continued at Discharge Meds if any: NOT Prescribed or Continued at Discharge Cerebrovascular accident Inclusion Criteria At DC or during hospital stay patient has or had the following: CVA/TIA Diagnosis No Discharge Core Measures Meds if any: Prescribed or Continued at Discharge Meds if any: NOT Prescribed or Continued at Discharge Venous thromboembolism Inclusion Criteria VTE Diagnosis No VTE Type NONE VTE Confirmed by (Test) NONE Discharge Core Measures - Per Current guidelines, there needs to be overlap - treatment for the first 5 days of Warfarin therapy. - If discharged on Warfarin prior to 5 days of - overlap therapy, the patient will need to be - assessed for post discharge needs including - *Post discharge parental anticoagulation - *Warfarin and/or parental anticoagulation education - *Follow up date to check INR post discharge At least 5 days overlap therapy as Inpatient No Meds if any: Prescribed or Continued at Discharge Note: Overlap Therapy is Warfarin and Anticoagulant Meds if any: NOT Prescribed or Continued at Discharge
--- NOTE | 2017-06-04 15:14 | ECHOCARDIOGRAM REPORT ---
ARAMIS MUNROE Age: 71 : 1945 Gender: M Exam Date: 06/04/2017 13:21 Exam Location: [address] Ht (in): 72 Wt (lb): 225 BSA: 2.30 BP: 150 / 68 Ordering Physician: Richard Skelton MD Referring Physician: Paco Blevins MD Technologist: Paty Hernandez Room Number: 176 -01 Indications: LIGHTHEADEDNESS Rhythm: Sinus Technical Quality: Poor FINDINGS Left Ventricle Normal size left ventricle. Moderate to severe concentric left ventricular hypertrophy. No obvious regional wall motion abnormalities. Normal left ventricular ejection fraction visually estimated at 65%. Abnormal relaxation filling pattern of the left ventricle for age (stage 1 diastolic dysfunction). Mildly increased resting left ventricular outflow tract velocity (1.3 m/s). Right Ventricle Normal right ventricular size and function. Right Atrium Normal right atrial size. Left Atrium Normal left atrial size. Mitral Valve Mild mitral annular calcification. Structurally normal mitral valve leaflets. Chordal KALI. Mild mitral regurgitation. Aortic Valve Aortic valve not well visualized. Mildly calcified aortic valve leaflets. Very mild aortic stenosis. Mild aortic regurgitation. Tricuspid Valve Structurally normal tricuspid valve. Trace tricuspid regurgitation. No evidence of pulmonary hypertension. Right ventricular systolic pressure estimated to be within the normal range at 28 mmHg. Pulmonic Valve Pulmonic valve not well visualized. No pulmonic regurgitation. Pericardium No pericardial effusion. Great Vessels Normal size aortic root. CONCLUSIONS Normal size left ventricle. Moderate to severe concentric left ventricular hypertrophy. Normal left ventricular ejection fraction visually estimated at 65%. Abnormal relaxation filling pattern of the left ventricle for age (stage 1 diastolic dysfunction). Mildly increased resting left ventricular outflow tract velocity (1.3 m/s). Normal right ventricular size and function. Normal right atrial size. Normal left atrial size. Mild mitral regurgitation. Very mild aortic stenosis. Mild aortic regurgitation. Trace tricuspid regurgitation. No evidence of pulmonary hypertension. Paco Blevins M.D. (Electronically Signed) Final Date: 04 June 2017 15:13 MEASUREMENTS (Male / Female) Normal Values 2D ECHO LV Diastolic Diameter PLAX 4.5 cm 4.2 - 5.9 / 3.9 - 5.3 cm LV Systolic Diameter PLAX 2.9 cm 2.1 - 4.0 cm LV Fractional Shortening PLAX 35.6 % 25 - 46 % LV Ejection Fraction 2D Teich 65.2 % IVS Diastolic Thickness 1.7 cm LVPW Diastolic Thickness 1.4 cm LV Relative Wall Thickness 0.7 RV Internal Dim ED PLAX 2.7 cm 1.9 - 3.8 cm LVOT Diameter 1.9 cm LA Systolic Diameter LX 4.8 cm 3.0 - 4.0 / 2.7 - 3.8 cm LA Volume 41.0 cm 18 - 58 / 22 - 52 cm DOPPLER AV Peak Velocity 206.0 cm/s AV Peak Gradient 17.0 mmHg AV Mean Velocity 140.0 cm/s AV Mean Gradient 9.0 mmHg AV Velocity Time Integral 46.4 cm LVOT Peak Velocity 133.0 cm/s LVOT Peak Gradient 7.1 mmHg LVOT Mean Velocity 97.9 cm/s LVOT Mean Gradient 4.0 mmHg LVOT Velocity Time Integral 23.1 cm LVOT Stroke Volume 65.5 cm AV Area Cont Eq vti 1.4 cm AV Area Cont Eq pk 1.8 cm MV Peak Velocity 111.0 cm/s MV Peak Gradient 4.9 mmHg MV Mean Velocity 58.4 cm/s MV Mean Gradient 2.0 mmHg Mitral E Point Velocity 80.0 cm/s Mitral A Point Velocity 107.0 cm/s Mitral E to A Ratio 0.7 MV PHT Velocity 70.6 cm/s MV Deceleration [place] 210.0 cm/s MV Pressure Half Time 100.9 ms MV Area PHT 2.2 cm MV Deceleration Time 246.0 ms TR Peak Velocity 213.0 cm/s TR Peak Gradient 18.1 mmHg Right Atrial Pressure 10.0 mmHg Pulmonary Artery Systolic Pressu 28.1 mmHg Right Ventricular Systolic Press 28.1 mmHg PV Peak Velocity 94.8 cm/s PV Peak Gradient 3.6 mmHg PV Mean Velocity 67.7 cm/s PV Mean Gradient 2.0 mmHg PV Velocity Time Integral 18.8 cm LV E' Lateral Velocity 7.1 cm/s Mitral E to LV E' Lateral Ratio 11.2 LV E' Septal Velocity 5.4 cm/s Mitral E to LV E' Septal Ratio 14.9
== END 2017-06-04 16:16 | DRG 194 ==
LOC: ERH 20:59 → ERHI 23:34 → 1NO 23:34 → EDBEDREQ 06-03 00:31 → ERHI 06-03 08:48 → ENRESERV 06-03 18:14 → 1NO 06-03 19:36 → ENTRNSPT 06-03 19:39 → EDTRNSPT 06-03 19:47 → EDTRNSPTSTS 06-03 19:47 → 1NO 06-03 19:58 → CMPTRNSPT 06-03 20:14 → ENPENDDIS 06-04 14:55 → 1NO 06-04 16:16
PROVIDERS: Dermatology; Pediatrics; Student in an Organized Health Care Education/Training Program
DX: J10.1 Influenza due to other identified influenza virus with other respiratory manifestations (principal); J44.1 Chronic obstructive pulmonary disease with (acute) exacerbation; J44.0 Chronic obstructive pulmonary disease with (acute) lower respiratory infection; E11.9 Type 2 diabetes mellitus without complications; J20.9 Acute bronchitis, unspecified; E86.0 Dehydration; R09.02 Hypoxemia; F17.210 Nicotine dependence, cigarettes, uncomplicated; H81.10 Benign paroxysmal vertigo, unspecified ear; I10 Essential (primary) hypertension; I25.2 Old myocardial infarction; I25.10 Atherosclerotic heart disease of native coronary artery without angina pectoris; Z95.5 Presence of coronary angioplasty implant and graft; R26.89 Other abnormalities of gait and mobility; Z88.8 Allergy status to other drugs, medicaments and biological substances
CPT/HCPCS: 1NP; ERO; 36592; 71045; 73030-RT; 73562-RT; 82436; 87040; 87070; 87804; 87804-59; 93005; 93010; 93306; 97112-GO; 97116-GO; 97161-GP; J0696; J1650; J2930